=== PATIENT | female | born 1935 | race Caucasian/White ===

== ENCOUNTER 2017-04-11 10:57 | Day surgery (SDC) | payer MEDICARE, SELFPAY ==
[~2017-04-11] VITALS: Ht 162.6 cm; Wt 107.6 kg
[~2017-04-11 10:57] MED LIST: ATEN50 PO; ATOR40TA PO; HYDCHL25 PO; LEVSOD150 PO; Norco 5-325 Ta1 EACH PO; Omeprazole20 M1 PO; Prozac20 MG PO; ULTRA-LIGHT RO1 EACH MC
[2017-04-15] MEDS ORDERED: Toprol Xl50 MG PO (08:43)
[2017-04-15] MEDS ORDERED: XARELTO15 MG PO (08:43)
== END 2017-04-11 12:10 | disposition home or self-care (01) ==
LOC: ORSCSDS 10:57
PROVIDERS: Internal Medicine Gastroenterology
PROC: 0DB68ZX Excision of Stomach, Via Natural or Artificial Opening Endoscopic, Diagnostic (ICD-10-PCS; principal; 2017-04-11 13:30)
DX: R13.10 Dysphagia, unspecified (principal); K44.9 Diaphragmatic hernia without obstruction or gangrene; K29.00 Acute gastritis without bleeding; K20.9 Esophagitis, unspecified; R11.2 Nausea with vomiting, unspecified; Z98.84 Bariatric surgery status; E05.90 Thyrotoxicosis, unspecified without thyrotoxic crisis or storm; E78.5 Hyperlipidemia, unspecified; I10 Essential (primary) hypertension; F41.9 Anxiety disorder, unspecified; Z87.891 Personal history of nicotine dependence; Z79.82 Long term (current) use of aspirin; Z79.899 Other long term (current) drug therapy
CPT/HCPCS: 88305; 88342

== ENCOUNTER 2017-11-19 19:47 | Emergency (ER) | payer MEDICARE ==
[~2017-11-19] VITALS: Ht 162.6 cm; Wt 117.9 kg
[~2017-11-19 19:47] MED LIST changes: +Toprol Xl50 MG PO; +XARELTO15 MG PO
[2017-11-19] MEDS ORDERED: Zofran Odt4 MG PO (22:04)
[2017-11-19] MEDS ORDERED: Norco 5-325 Ta1 EACH PO (22:04)
== END 2017-11-19 22:56 | disposition home or self-care (01) ==
LOC: ER 19:47
DX: S82.62XA Displaced fracture of lateral malleolus of left fibula, initial encounter for closed fracture (principal); E03.9 Hypothyroidism, unspecified; I10 Essential (primary) hypertension; E78.00 Pure hypercholesterolemia, unspecified; Z79.899 Other long term (current) drug therapy; Z87.891 Personal history of nicotine dependence; W19.XXXA Unspecified fall, initial encounter
CPT/HCPCS: 29505; 73610; 96372; 99284-25; J3010

== ENCOUNTER 2017-11-27 07:47 | Day surgery (SDC) | payer MEDICARE ==
[~2017-11-27] VITALS: Ht 167.6 cm; Wt 104.3 kg
[~2017-11-27 07:47] MED LIST changes: +Zofran Odt4 MG PO
[2017-11-27] MEDS ORDERED: ELIQUIS5 MG PO (08:59)
[2017-11-27] MEDS ORDERED: Protonix40 MG PO (09:01)
[2017-11-27] MEDS ORDERED: RANI150EL (09:02)
== END 2017-11-27 14:36 | disposition home or self-care (01) ==
LOC: ORSCSDS 07:47
PROVIDERS: Orthopaedic Surgery
PROC: 0QSK04Z Reposition Left Fibula with Internal Fixation Device, Open Approach (ICD-10-PCS; principal; 2017-11-27 09:30)
DX: S82.62XA Displaced fracture of lateral malleolus of left fibula, initial encounter for closed fracture (principal); I10 Essential (primary) hypertension; I48.91 Unspecified atrial fibrillation; E78.00 Pure hypercholesterolemia, unspecified; K21.9 Gastro-esophageal reflux disease without esophagitis; E03.9 Hypothyroidism, unspecified; E66.01 Morbid (severe) obesity due to excess calories; Z68.37 Body mass index [BMI] 37.0-37.9, adult; Z79.899 Other long term (current) drug therapy
CPT/HCPCS: C1713; J0690; J2250; J3010; J7120

== ENCOUNTER 2018-05-04 16:45 | Emergency (ER) | payer MEDICARE, OTHER ==
[~2018-05-04] VITALS: Ht 165.1 cm; Wt 108.9 kg
[~2018-05-04 16:45] MED LIST changes: +ELIQUIS5 MG PO; +Protonix40 MG PO; +RANI150EL
[2018-05-04] MEDS ORDERED: Augmentin 875-1 EACH PO (17:36)
== END 2018-05-04 17:52 | disposition home or self-care (01) ==
LOC: ER 16:45
DX: S61.451A Open bite of right hand, initial encounter (principal); W55.01XA Bitten by cat, initial encounter; Z79.899 Other long term (current) drug therapy; E03.9 Hypothyroidism, unspecified; E78.00 Pure hypercholesterolemia, unspecified; I10 Essential (primary) hypertension; Z87.891 Personal history of nicotine dependence
CPT/HCPCS: 90471; 90714; 99283

== ENCOUNTER → 2018-10-18 | Outpatient (CLI) | payer MEDICARE, SELFPAY ==
[~2018-10-18] MED LIST changes: +Augmentin 875-1 EACH PO
== END | disposition home or self-care (01) ==
LOC: PLD 08:55 → LAB SHORT 08:55
DX: D22.22 Melanocytic nevi of left ear and external auricular canal (principal)
CPT/HCPCS: 88305

== ENCOUNTER 2018-11-14 12:14 | Emergency (ER) | payer MEDICARE, SELFPAY ==
[~2018-11-14] VITALS: Ht 165.1 cm; Wt 108.0 kg
[2018-11-14 12:59] LABS: BASOPHILS ABSOLUTE AUTO 0.08 K/mm3 (0.00-0.23); BASOPHILS PERCENT AUTO 1 % (0-2); EOSINOPHILS ABSOLUTE AUTO 0.19 K/mm3 (0.00-0.68); EOSINOPHILS PERCENT AUTO 3 % (0-6); Hematocrit 46.6 % (33.0-51.0); Hemoglobin 15.3 g/dL (11.5-16.0); IMMATURE GRAN ABSOLUTE AUTO 0.01 K/mm3 (0.00-0.10); IMMATURE GRAN PERCENT AUTO 0 % (0-1); LYMPHOCYTES ABSOLUTE AUTO 2.36 K/mm3 (0.84-5.20); LYMPHOCYTES PERCENT AUTO 35 % (21-46); MONOCYTES ABSOLUTE AUTO 0.76 K/mm3 (0.16-1.47); MONOCYTES PERCENT AUTO 11 % (4-13); Mean Corpuscular HGB 31.7 pg (26.0-34.0); Mean Corpuscular HGB Conc 32.8 g/dL (31.5-36.5); Mean Corpuscular Volume 97 fL (80-100); Mean Platelet Volume 11.3 fL (9.1-12.4); NEUTROPHILS PERCENT AUTO 50 % (41-73); Platelet Count 209 K/mm3 (150-400); RDW Coefficient Variation 12.6 % (11.7-14.2); RDW Standard Deviation 45.1 fL (35.1-46.3); Red Blood Cell Count 4.83 M/mm3 (3.80-5.20)
[2018-11-14 13:21] LABS: Alanine Aminotransfer (ALT/SGP 28 U/L (12-78); Albumin, Blood 3.9 g/dL (3.4-5.0); Alk Phos 73 U/L (50-136); Anion Gap 8 mmol/L (6-16); Aspartate Aminotrans (AST/SGOT 32 U/L (12-37); Bilirubin, Total 0.5 mg/dL (0.1-1.0); Blood Urea Nitrogen 22 mg/dL (8-24); Bun/Creatinine Ratio 26.3 (12.0-20.0); CO2, Blood 29 mmol/L (21-32); Calcium, Blood 9.4 mg/dL (8.5-10.1); Chloride, Blood 103 mmol/L (98-108); Creatinine, Blood 0.84 mg/dL (0.40-1.00); Globulin, Blood 3.8 g/dL (2.2-4.0); Glomerular Filtration Rate >60 (60-); Glucose, Blood 103 mg/dL (70-99); Potassium, Blood 3.9 mmol/L (3.5-5.5); Sodium, Blood 140 mmol/L (136-145); Total Protein, Blood 7.7 g/dL (6.4-8.2); Troponin I <0.015 ng/mL (0.000-0.040)
[2018-11-14 14:21] LABS: Magnesium, Blood 2.2 mg/dL (1.6-2.4)
[2018-11-14 14:23] LABS: Thyroid Stimulating Hormone 0.924 uIU/mL (0.360-4.800)
== END 2018-11-14 15:14 | disposition home or self-care (01) ==
LOC: ER 12:14
PROVIDERS: Emergency Medicine; Physician Assistant
DX: I48.91 Unspecified atrial fibrillation (principal); E78.00 Pure hypercholesterolemia, unspecified; I10 Essential (primary) hypertension; E07.9 Disorder of thyroid, unspecified; I47.1 Supraventricular tachycardia; Z87.891 Personal history of nicotine dependence
CPT/HCPCS: 36415; 71046; 80053; 83735; 84443; 84484; 85025; 93005; 93010; 99285-25; J7030

== ENCOUNTER 2019-04-14 09:34 | Emergency (ER) | payer MEDICARE, SELFPAY ==
[~2019-04-14] VITALS: Ht 170.2 cm; Wt 90.7 kg
[2019-04-14] MEDS ORDERED: ONDA4ODT MM (10:39)
[2019-04-14] MEDS ORDERED: Keflex500 MG PO (10:39)
[2019-04-14] MEDS ORDERED: Norco 10-325 T1 EACH PO (10:39)
== END 2019-04-14 11:12 | disposition home or self-care (01) ==
LOC: ER 09:34
DX: S68.125A Partial traumatic metacarpophalangeal amputation of left ring finger, initial encounter (principal); I10 Essential (primary) hypertension; E03.9 Hypothyroidism, unspecified; Z79.899 Other long term (current) drug therapy; Z79.01 Long term (current) use of anticoagulants; Z87.891 Personal history of nicotine dependence; W23.0XXA Caught, crushed, jammed, or pinched between moving objects, initial encounter
CPT/HCPCS: 12001; 73140; 99283-25

== ENCOUNTER 2020-03-29 17:16 | Emergency (ER) | payer MEDICARE ==
[~2020-03-29] VITALS: Ht 167.6 cm; Wt 117.9 kg
[~2020-03-29 17:16] MED LIST changes: +Keflex500 MG PO; +Norco 10-325 T1 EACH PO; +ONDA4ODT MM
[2020-03-29 17:44] LABS: BASOPHILS ABSOLUTE AUTO 0.07 K/mm3 (0.00-0.23); BASOPHILS PERCENT AUTO 1 % (0-2); EOSINOPHILS ABSOLUTE AUTO 0.19 K/mm3 (0.00-0.68); EOSINOPHILS PERCENT AUTO 3 % (0-6); Hematocrit 44.8 % (33.0-51.0); Hemoglobin 14.6 g/dL (11.5-16.0); IMMATURE GRAN ABSOLUTE AUTO 0.01 K/mm3 (0.00-0.10); IMMATURE GRAN PERCENT AUTO 0 % (0-1); LYMPHOCYTES PERCENT AUTO 36 % (21-46); MONOCYTES ABSOLUTE AUTO 0.58 K/mm3 (0.16-1.47); MONOCYTES PERCENT AUTO 9 % (4-13); Mean Corpuscular HGB 31.1 pg (26.0-34.0); Mean Corpuscular HGB Conc 32.6 g/dL (31.5-36.5); Mean Corpuscular Volume 96 fL (80-100); Mean Platelet Volume 10.9 fL (9.1-12.4); NEUTROPHILS ABSOLUTE AUTO 3.12 K/mm3 (1.96-9.15); NEUTROPHILS PERCENT AUTO 51 % (41-73); Platelet Count 225 K/mm3 (150-400); RDW Coefficient Variation 13.4 % (11.7-14.2); RDW Standard Deviation 47.4 fL (35.1-46.3); Red Blood Cell Count 4.69 M/mm3 (3.80-5.20); White Blood Cell Count 6.17 K/mm3 (4.00-11.30)
[2020-03-29 18:14] LABS: Alanine Aminotransfer (ALT/SGP 30 U/L (12-78); Albumin, Blood 3.8 g/dL (3.4-5.0); Alk Phos 64 U/L (50-136); Anion Gap 7 mmol/L (6-16); Aspartate Aminotrans (AST/SGOT 29 U/L (12-37); Bilirubin, Total 0.4 mg/dL (0.1-1.0); Blood Urea Nitrogen 21 mg/dL (8-24); Bun/Creatinine Ratio 23.6 (12.0-20.0); CO2, Blood 30 mmol/L (21-32); Calcium, Blood 10.1 mg/dL (8.5-10.1); Chloride, Blood 102 mmol/L (98-108); Creatinine, Blood 0.89 mg/dL (0.40-1.00); Globulin, Blood 3.9 g/dL (2.2-4.0); Glomerular Filtration Rate >60 (60-); Glucose, Blood 102 mg/dL (70-99); Potassium, Blood 3.9 mmol/L (3.5-5.5); Sodium, Blood 139 mmol/L (136-145); Total Protein, Blood 7.7 g/dL (6.4-8.2); Troponin I <0.015 ng/mL (0.000-0.040)
[2020-03-29] MEDS ORDERED: Pravachol40 MG PO (19:17)
[2020-03-29] MEDS ORDERED: METO50ER PO (19:17)
[2020-03-29] MEDS ORDERED: OMEP20ER PO (19:18)
[2020-03-29] MEDS ORDERED: CENTRUM SILVER1 EAC2 PO (19:19)
[2020-03-29] MEDS ORDERED: CALCIUM 600 +1 EA11 PO (19:19)
[2020-03-29] MEDS ORDERED: Flax Oil1000 MG PO (19:19)
[2020-03-29] MEDS ORDERED: OMEPRAZOLE MAGN20 MG PO (21:30)
[2020-03-29] MEDS ORDERED: Nitrostat0.4 MG SL (21:30)
== END 2020-03-29 21:39 | disposition home or self-care (01) ==
LOC: ER 17:16
PROVIDERS: Physician Assistant
DX: R07.9 Chest pain, unspecified (principal); I48.91 Unspecified atrial fibrillation; K21.9 Gastro-esophageal reflux disease without esophagitis; E78.00 Pure hypercholesterolemia, unspecified; I10 Essential (primary) hypertension; Z87.891 Personal history of nicotine dependence; Z79.899 Other long term (current) drug therapy; Z79.01 Long term (current) use of anticoagulants; Z88.2 Allergy status to sulfonamides
CPT/HCPCS: 71046; 80053; 83880; 84484; 85025; 93005; 93010; 99285-25

== ENCOUNTER 2021-07-28 12:49 | Inpatient (IN) | payer MEDICARE ==
[~2021-07-28] VITALS: Ht 165.1 cm; Wt 110.5 kg
[~2021-07-28 12:49] MED LIST changes: +CALCIUM 600 +1 EA11 PO; +CENTRUM SILVER1 EAC2 PO; +Flax Oil1000 MG PO; +METO50ER PO; +Nitrostat0.4 MG SL; +OMEP20ER PO; +OMEPRAZOLE MAGN20 MG PO; +Pravachol40 MG PO
[2021-07-28 13:34] LABS: BASOPHILS ABSOLUTE AUTO 0.07 K/mm3 (0.00-0.23); BASOPHILS PERCENT AUTO 1 % (0-2); EOSINOPHILS ABSOLUTE AUTO 0.17 K/mm3 (0.00-0.68); EOSINOPHILS PERCENT AUTO 2 % (0-6); Hematocrit 41.3 % (33.0-51.0); Hemoglobin 14.1 g/dL (11.5-16.0); IMMATURE GRAN ABSOLUTE AUTO 0.02 K/mm3 (0.00-0.10); IMMATURE GRAN PERCENT AUTO 0 % (0-1); LYMPHOCYTES ABSOLUTE AUTO 2.03 K/mm3 (0.84-5.20); LYMPHOCYTES PERCENT AUTO 26 % (21-46); MONOCYTES ABSOLUTE AUTO 0.66 K/mm3 (0.16-1.47); MONOCYTES PERCENT AUTO 8 % (4-13); Mean Corpuscular HGB 32.1 pg (26.0-34.0); Mean Corpuscular HGB Conc 34.1 g/dL (31.5-36.5); Mean Corpuscular Volume 94 fL (80-100); Mean Platelet Volume 11.5 fL (9.1-12.4); NEUTROPHILS ABSOLUTE AUTO 4.88 K/mm3 (1.96-9.15); NEUTROPHILS PERCENT AUTO 62 % (41-73); Platelet Count 230 K/mm3 (150-400); RDW Coefficient Variation 12.9 % (11.7-14.2); RDW Standard Deviation 44.5 fL (35.1-46.3); Red Blood Cell Count 4.39 M/mm3 (3.80-5.20); White Blood Cell Count 7.83 K/mm3 (4.00-11.30)
[2021-07-28 14:03] LABS: Albumin/Globulin Ratio 1.1 (0.8-1.8); Bilirubin, Total 0.4 mg/dL (0.1-1.0); Bun/Creatinine Ratio 28.3 (12.0-20.0); Calcium, Blood 14.6 mg/dL (8.5-10.1); Creatinine, Blood 1.38 mg/dL (0.40-1.00); Globulin, Blood 3.8 g/dL (2.2-4.0); Potassium, Blood 2.8 mmol/L (3.5-5.5); Total Protein, Blood 7.8 g/dL (6.4-8.2)
[2021-07-28 14:43] LABS: Free Thyroxine 1.44 ng/dL (0.70-1.60); Magnesium, Blood 1.4 mg/dL (1.6-2.4); Phosphorus, Blood 2.6 mg/dL (2.5-4.9); Thyroid Stimulating Hormone 1.87 uIU/mL (0.360-4.800)
[2021-07-28 14:45] LABS: Source, Urine Clean Catch
[2021-07-28 14:49] LABS: Bilirubin, Urine Neg (Neg); Blood, Urine 1+ (Neg); Glucose Qualitative, Urine Neg (Neg); Ketones, Urine Neg (Neg); Leukocyte Esterase, Urine 2+ (Neg); Nitrite, Urine Neg (Neg); Protein, Urine Neg (Neg); Urobilinogen, Urine NORM (Normal)
[2021-07-28 15:00] LABS: Appearance, Urine Hazy (Clear); Color, Urine Pale Yellow (P-Yellow)
[2021-07-28 15:02] LABS: Squamous Epithelial Cells Few /hpf (Few)
[2021-07-28 15:03] LABS: Amorphous Light (0-Heavy); Bacteria Few /hpf; Mucus Light (0-Heavy)
[2021-07-28 16:27] LABS: Base Excess Venous 15.2 mmol/L; Bicarbonate Venous 36.6 mmol/L (24.0-30.0); PCO2 Venous 53.8 mmHg (38-42); pH Blood Venous 7.47 (7.34-7.37)
[2021-07-28 16:49] LABS: Uric Acid, Blood 8.2 mg/dL (2.6-6.0)
[2021-07-28] MEDS ORDERED: LOSA25 PO (17:45)
[2021-07-28] MEDS ORDERED: [UNRECOGNIZED DRUG - CODE] SL (17:51)
[2021-07-28] MEDS ORDERED: KRILL OIL 5001 EAC1 PO (17:51)
--- NOTE | 2021-07-28 18:26 | NUR ---
SHIFT SUMMARY: ASSUMED CARE OF PATIENT UPON HER ARRIVAL FROM ED AT 1625. STAND-PIVOT TRANSFER FROM [facility] TO BED, WEAKNESS IN BLE. A&O X 4, PLEASANT. PLACED ON TELEMETRY, SINUS JUN AT 56. ON ROOM AIR, NO COUGH. GETTING UP TO BR WITH SBA AND FWW. DENIES PAIN. MAGNESIUM REPLACED, KCL INFUSING NOW. HAS CHRONIC CONSTIPATION, USES MAG CITRATE AT HOME, LBM "DAYS AGO." SPOUSE AT BEDSIDE. EDUCATED ABOUT FALL PRECAUTIONS, TELEMETRY, UNIT ROUTINE. CALL LIGHT AND BELONGINGS IN REACH.
[2021-07-29 05:16] LABS: BASOPHILS ABSOLUTE AUTO 0.07 K/mm3 (0.00-0.23); BASOPHILS PERCENT AUTO 1 % (0-2); EOSINOPHILS ABSOLUTE AUTO 0.17 K/mm3 (0.00-0.68); EOSINOPHILS PERCENT AUTO 2 % (0-6); Hematocrit 35.4 % (33.0-51.0); Hemoglobin 12.1 g/dL (11.5-16.0); IMMATURE GRAN ABSOLUTE AUTO 0.03 K/mm3 (0.00-0.10); IMMATURE GRAN PERCENT AUTO 0 % (0-1); LYMPHOCYTES ABSOLUTE AUTO 1.74 K/mm3 (0.84-5.20); LYMPHOCYTES PERCENT AUTO 17 % (21-46); MONOCYTES ABSOLUTE AUTO 1.11 K/mm3 (0.16-1.47); MONOCYTES PERCENT AUTO 11 % (4-13); Mean Corpuscular HGB 32.2 pg (26.0-34.0); Mean Corpuscular HGB Conc 34.2 g/dL (31.5-36.5); Mean Corpuscular Volume 94 fL (80-100); Mean Platelet Volume 11.6 fL (9.1-12.4); NEUTROPHILS ABSOLUTE AUTO 6.91 K/mm3 (1.96-9.15); NEUTROPHILS PERCENT AUTO 69 % (41-73); Platelet Count 206 K/mm3 (150-400); RDW Standard Deviation 44.5 fL (35.1-46.3); Red Blood Cell Count 3.76 M/mm3 (3.80-5.20); White Blood Cell Count 10.03 K/mm3 (4.00-11.30)
[2021-07-29 05:36] LABS: Magnesium, Blood 1.6 mg/dL (1.6-2.4)
[2021-07-29 05:41] LABS: Albumin, Blood 3.5 g/dL (3.4-5.0); Bilirubin, Total 0.5 mg/dL (0.1-1.0); Bun/Creatinine Ratio 22.8 (12.0-20.0); Creatinine, Blood 1.27 mg/dL (0.40-1.00); Globulin, Blood 3.4 g/dL (2.2-4.0); Potassium, Blood 2.7 mmol/L (3.5-5.5); Total Protein, Blood 6.9 g/dL (6.4-8.2)
[2021-07-29 05:44] LABS: Calcium, Blood 12.3 mg/dL (8.5-10.1)
--- NOTE | 2021-07-29 06:11 | NUR ---
PT IS A/OX4. A LITTLE FORGETFUL AT TIMES. SHE IS A SBA W/ FWW TO BR. SHE'S HAD C/O OF CONSTIPATION, BUT HAS MULTIPLE BMs THIS NOC SHIFT. PER TOOL MAKER: SR/71, 1ST DEGREE, BBB HB. PT USES CALL LIGHT WELL AND WE'LL CONTINUE TO MONITOR.
--- NOTE | 2021-07-29 17:05 | NUR ---
SHIFT SUMMARY: HAVING FREQUENT BM'S, LIQUID STOOL. C/O HEADACHE EARLIER, MEDICATED WITH TYLENOL WITH GOOD RELIEF. POOR APPETITE AFTER VOMITING BREAKFAST. ORTHOPEDICALLY IMPAIRED TEACHER CONSULT ORDERED TO HELP HER MAKE BETTER FOOD CHOICES AT HOME. NO EVENTS ON TELEMETRY, SINUS JUN-SR 50-68. GETTING UP TO BR WITH SBA AND FWW. IS HOPING TO BE DISCHARGED HOME TOMORROW.
[2021-07-30 05:12] LABS: Hematocrit 31.8 % (33.0-51.0); Hemoglobin 10.7 g/dL (11.5-16.0); Mean Corpuscular HGB 32.3 pg (26.0-34.0); Mean Corpuscular HGB Conc 33.6 g/dL (31.5-36.5); Mean Corpuscular Volume 96 fL (80-100); Mean Platelet Volume 11.6 fL (9.1-12.4); Platelet Count 175 K/mm3 (150-400); RDW Coefficient Variation 13.4 % (11.7-14.2); RDW Standard Deviation 47.1 fL (35.1-46.3); Red Blood Cell Count 3.31 M/mm3 (3.80-5.20); White Blood Cell Count 7.62 K/mm3 (4.00-11.30)
[2021-07-30 05:33] LABS: Albumin, Blood 3.2 g/dL (3.4-5.0); Anion Gap 1 mmol/L (6-16); Blood Urea Nitrogen 17 mg/dL (8-24); Bun/Creatinine Ratio 14.8 (12.0-20.0); CO2, Blood 30 mmol/L (21-32); Chloride, Blood 108 mmol/L (98-108); Creatinine, Blood 1.15 mg/dL (0.40-1.00); Glomerular Filtration Rate 45 (60-); Glucose, Blood 115 mg/dL (70-99); Phosphorus, Blood 1.4 mg/dL (2.5-4.9); Potassium, Blood 2.8 mmol/L (3.5-5.5); Sodium, Blood 139 mmol/L (136-145)
[2021-07-30 05:50] LABS: Calcium, Blood 9.5 mg/dL (8.5-10.1)
--- NOTE | 2021-07-30 06:13 | NUR ---
SHIFT SUMMARY: PT IS A/OX4, BUT HAS SOME INTERMITTENT FORGETFULLNESS. TELE: PER TECH SHE WENT INTO AFIB @ 1999 & CONVERTED TO NORMAL SINUS AROUND 0040. THE PT IS MORE STEADY AND A SBA W/ FWW TO BR. BED ALARM HAS BEEN SET D/T PT NOT ALWAYS USING CALL LIGHT WHEN GETTING OOB. PT DID HAVE ONE EPISODE OF EMESIS (50 ML) @ 0345. DIETIAN ORDER WAS PUT IN 07/29. CALL LIGHT IS WITHIN REACH AND BED ALARM IS SET.
[2021-07-30] MEDS ORDERED: OMEP20ER PO (10:38)
[2021-07-30] MEDS ORDERED: POTCHL20ER PO (10:39)
--- NOTE | 2021-07-30 12:02 | NUR ---
DISCHARGE NOTE THE PATIENT WAS DISCHARGED THIS AM VIA WHEELCHAIR WITH SPOUSE. THE PATIENT VERBALIZED UNDERSTANDING OF DISCHARGE INSTRUCTIONS GIVEN. VSS AT DISCHARGE. NOTHING FURTHER TO REPORT.
== END 2021-07-30 11:34 | disposition home or self-care (01) | DRG 683 ==
LOC: ER 12:49 → MEDS 12:50 → ENPENDDIS 07-30 10:24 → MEDS 07-30 11:34
PROVIDERS: Emergency Medicine; Internal Medicine; Nurse Practitioner Acute Care; Student in an Organized Health Care Education/Training Program; ADMIT Family Medicine
DX: N17.9 Acute kidney failure, unspecified (principal); E87.3 Alkalosis; I48.20 Chronic atrial fibrillation, unspecified; E83.52 Hypercalcemia; E87.6 Hypokalemia; E83.42 Hypomagnesemia; E78.5 Hyperlipidemia, unspecified; K21.9 Gastro-esophageal reflux disease without esophagitis; K59.09 Other constipation; I10 Essential (primary) hypertension; E03.9 Hypothyroidism, unspecified; Z96.653 Presence of artificial knee joint, bilateral; Z88.2 Allergy status to sulfonamides; Z79.899 Other long term (current) drug therapy; Z79.01 Long term (current) use of anticoagulants; Z90.49 Acquired absence of other specified parts of digestive tract; Z90.710 Acquired absence of both cervix and uterus; Z90.89 Acquired absence of other organs; Z98.890 Other specified postprocedural states
CPT/HCPCS: 36415; 71045; 71260; 80053; 80069; 81001; 82306; 82310; 82330; 82550; 82652; 82803; 83735; 83880; 83970; 84100; 84132; 84439; 84443; 84550; 85025; 85027; 87086; 93005; 93010; 96365; 96368; 96375; 96376; 99285-25; A9270; G0378; J0630; J1940; J2405; J3475; J3480; J3489; J7030; Q9967

== ENCOUNTER → 2022-05-05 | Outpatient (CLI) | payer MEDICARE ==
[~2022-05-05] MED LIST changes: +KRILL OIL 5001 EAC1 PO; +LOSA25 PO; +POTCHL20ER PO; +[UNRECOGNIZED DRUG - CODE] SL
== END | disposition home or self-care (01) ==
LOC: LAB 15:20 → LAB SHORT 15:20
DX: Z48.817 Encounter for surgical aftercare following surgery on the skin and subcutaneous tissue (principal)
CPT/HCPCS: 87070; 87205

== ENCOUNTER 2022-12-17 18:50 | Emergency (ER) | payer OTHER ==
[~2022-12-17] VITALS: Ht 165.1 cm; Wt 111.1 kg
[2022-12-17 18:57] VITALS: BP 174/75
== END 2022-12-17 20:17 | disposition home or self-care (01) ==
LOC: ER 18:50
DX: H61.22 Impacted cerumen, left ear (principal); I10 Essential (primary) hypertension; I48.91 Unspecified atrial fibrillation; Z88.2 Allergy status to sulfonamides; Z79.899 Other long term (current) drug therapy; Z79.01 Long term (current) use of anticoagulants; Z87.891 Personal history of nicotine dependence
CPT/HCPCS: 99282

== ENCOUNTER 2023-03-06 13:14 | Emergency (ER) | payer OTHER ==
[~2023-03-06] VITALS: Ht 165.1 cm; Wt 108.9 kg
[2023-03-06 14:08] LABS: BASOPHILS ABSOLUTE AUTO 0.09 K/mm3 (0.00-0.23); BASOPHILS PERCENT AUTO 1 % (0-2); EOSINOPHILS ABSOLUTE AUTO 0.25 K/mm3 (0.00-0.68); EOSINOPHILS PERCENT AUTO 3 % (0-6); Hemoglobin 14.6 g/dL (11.5-16.0); IMMATURE GRAN ABSOLUTE AUTO 0.02 K/mm3 (0.00-0.10); IMMATURE GRAN PERCENT AUTO 0 % (0-1); LYMPHOCYTES ABSOLUTE AUTO 2.44 K/mm3 (0.84-5.20); LYMPHOCYTES PERCENT AUTO 31 % (21-46); MONOCYTES ABSOLUTE AUTO 0.81 K/mm3 (0.16-1.47); MONOCYTES PERCENT AUTO 10 % (4-13); Mean Corpuscular HGB 31.9 pg (26.0-34.0); Mean Corpuscular HGB Conc 33.2 g/dL (31.5-36.5); Mean Corpuscular Volume 96 fL (80-100); Mean Platelet Volume 10.5 fL (9.1-12.4); NEUTROPHILS ABSOLUTE AUTO 4.38 K/mm3 (1.96-9.15); NEUTROPHILS PERCENT AUTO 55 % (41-73); Platelet Count 228 K/mm3 (150-400); RDW Coefficient Variation 13.1 % (11.7-14.2); RDW Standard Deviation 46.5 fL (35.1-46.3); Red Blood Cell Count 4.57 M/mm3 (3.80-5.20); White Blood Cell Count 7.99 K/mm3 (4.00-11.30)
[2023-03-06 14:25] LABS: Albumin, Blood 3.7 g/dL (3.4-5.0); Albumin/Globulin Ratio 0.9 (0.8-1.8); Bilirubin, Total 0.4 mg/dL (0.1-1.0); Bun/Creatinine Ratio 18.9 (12.0-20.0); Creatinine, Blood 1.22 mg/dL (0.40-1.00); Globulin, Blood 3.9 g/dL (2.2-4.0); Potassium, Blood 4.8 mmol/L (3.5-5.5); Total Protein, Blood 7.6 g/dL (6.4-8.2)
[2023-03-06 16:25] LABS: Magnesium, Blood 2.3 mg/dL (1.6-2.4); Phosphorus, Blood 3.5 mg/dL (2.5-4.9)
[2023-03-06 16:47] VITALS: BP 131/81
== END 2023-03-06 16:49 | disposition home or self-care (01) ==
LOC: ER 13:14
PROVIDERS: Physician Assistant
DX: N17.9 Acute kidney failure, unspecified (principal); E86.0 Dehydration; I44.0 Atrioventricular block, first degree; I10 Essential (primary) hypertension; I48.91 Unspecified atrial fibrillation; Z79.899 Other long term (current) drug therapy; Z79.01 Long term (current) use of anticoagulants; Z88.2 Allergy status to sulfonamides
CPT/HCPCS: 80053; 83735; 84100; 85025; 93005; 93010; 96360; 99285-25; J7030

== ENCOUNTER → 2023-06-08 | Outpatient (CLI) | payer OTHER | LOC: LAB 11:45 → LAB SHORT 11:45 | DX: R30.0 Dysuria (principal) | CPT/HCPCS: 87077; 87086; 87186 ==

== ENCOUNTER 2023-06-14 10:46 | Emergency (ER) | payer OTHER ==
[~2023-06-14] VITALS: Ht 165.1 cm; Wt 108.9 kg
[2023-06-14 11:14] LABS: BASOPHILS ABSOLUTE AUTO 0.09 K/mm3 (0.00-0.23); BASOPHILS PERCENT AUTO 1 % (0-2); EOSINOPHILS ABSOLUTE AUTO 0.19 K/mm3 (0.00-0.68); EOSINOPHILS PERCENT AUTO 3 % (0-6); Hematocrit 45.6 % (33.0-51.0); Hemoglobin 15.3 g/dL (11.5-16.0); IMMATURE GRAN ABSOLUTE AUTO 0.02 K/mm3 (0.00-0.10); IMMATURE GRAN PERCENT AUTO 0 % (0-1); LYMPHOCYTES ABSOLUTE AUTO 1.77 K/mm3 (0.84-5.20); LYMPHOCYTES PERCENT AUTO 24 % (21-46); MONOCYTES ABSOLUTE AUTO 0.62 K/mm3 (0.16-1.47); MONOCYTES PERCENT AUTO 8 % (4-13); Mean Corpuscular HGB 31.6 pg (26.0-34.0); Mean Corpuscular HGB Conc 33.6 g/dL (31.5-36.5); Mean Corpuscular Volume 94 fL (80-100); Mean Platelet Volume 10.6 fL (9.1-12.4); NEUTROPHILS ABSOLUTE AUTO 4.72 K/mm3 (1.96-9.15); NEUTROPHILS PERCENT AUTO 64 % (41-73); Platelet Count 259 K/mm3 (150-400); RDW Coefficient Variation 12.7 % (11.7-14.2); RDW Standard Deviation 44.2 fL (35.1-46.3); Red Blood Cell Count 4.84 M/mm3 (3.80-5.20); White Blood Cell Count 7.41 K/mm3 (4.00-11.30)
[2023-06-14 11:43] LABS: Albumin, Blood 3.5 g/dL (3.4-5.0); Albumin/Globulin Ratio 0.9 (0.8-1.8); Bilirubin, Total 0.6 mg/dL (0.1-1.0); Bun/Creatinine Ratio 26.9 (12.0-20.0); Calcium, Blood 9.8 mg/dL (8.5-10.1); Creatinine, Blood 0.89 mg/dL (0.40-1.00); Globulin, Blood 3.8 g/dL (2.2-4.0); Potassium, Blood 4.4 mmol/L (3.5-5.5); Total Protein, Blood 7.3 g/dL (6.4-8.2)
[2023-06-14 14:16] LABS: Source, Urine Clean Catch
[2023-06-14 14:39] LABS: Appearance, Urine Clear (Clear); Bilirubin, Urine Neg (Neg); Blood, Urine 1+ (Neg); Color, Urine Yellow (P-Yellow); Glucose Qualitative, Urine Neg (Neg); Ketones, Urine 1+ (Neg); Leukocyte Esterase, Urine 1+ (Neg); Nitrite, Urine Neg (Neg); Protein, Urine 1+ (Neg); Urobilinogen, Urine NORM (Normal)
[2023-06-14] MEDS ORDERED: Diltiazem HCl 5 MG / ML 5ML Vial IV ONE (14:40)
[2023-06-14 15:05] VITALS: BP 112/67
[2023-06-14 15:06] LABS: Bacteria Few /hpf; Mucus Light (0-Heavy); Renal Epithelial Rare /hpf (0-Rare); Squamous Epithelial Cells Few /hpf (Few)
[2023-06-15] MEDS ORDERED: Amiodarone HCl200 MG PO (16:46)
== END 2023-06-14 15:30 | disposition home or self-care (01) ==
LOC: ER 10:46
PROVIDERS: Student in an Organized Health Care Education/Training Program
DX: I48.91 Unspecified atrial fibrillation (principal); I10 Essential (primary) hypertension; E78.00 Pure hypercholesterolemia, unspecified; Z88.2 Allergy status to sulfonamides; Z79.899 Other long term (current) drug therapy; Z79.01 Long term (current) use of anticoagulants
CPT/HCPCS: 71046; 80053; 81001; 85025; 87086; 93005; 93010; 96374; 99285-25

== ENCOUNTER 2023-06-15 11:47 | Emergency (ER) | payer OTHER ==
[~2023-06-15] VITALS: Ht 165.1 cm; Wt 108.9 kg
[2023-06-15 13:02] LABS: BASOPHILS ABSOLUTE AUTO 0.08 K/mm3 (0.00-0.23); BASOPHILS PERCENT AUTO 1 % (0-2); EOSINOPHILS ABSOLUTE AUTO 0.23 K/mm3 (0.00-0.68); EOSINOPHILS PERCENT AUTO 3 % (0-6); Hematocrit 43.6 % (33.0-51.0); Hemoglobin 14.8 g/dL (11.5-16.0); IMMATURE GRAN ABSOLUTE AUTO 0.02 K/mm3 (0.00-0.10); IMMATURE GRAN PERCENT AUTO 0 % (0-1); LYMPHOCYTES ABSOLUTE AUTO 2.04 K/mm3 (0.84-5.20); LYMPHOCYTES PERCENT AUTO 26 % (21-46); MONOCYTES ABSOLUTE AUTO 0.63 K/mm3 (0.16-1.47); MONOCYTES PERCENT AUTO 8 % (4-13); Mean Corpuscular HGB 32.1 pg (26.0-34.0); Mean Corpuscular HGB Conc 33.9 g/dL (31.5-36.5); Mean Corpuscular Volume 95 fL (80-100); Mean Platelet Volume 10.5 fL (9.1-12.4); NEUTROPHILS ABSOLUTE AUTO 4.83 K/mm3 (1.96-9.15); NEUTROPHILS PERCENT AUTO 62 % (41-73); Platelet Count 244 K/mm3 (150-400); RDW Coefficient Variation 12.8 % (11.7-14.2); Red Blood Cell Count 4.61 M/mm3 (3.80-5.20); White Blood Cell Count 7.83 K/mm3 (4.00-11.30)
[2023-06-15 13:31] LABS: Albumin, Blood 3.4 g/dL (3.4-5.0); Albumin/Globulin Ratio 0.9 (0.8-1.8); Bilirubin, Total 0.4 mg/dL (0.1-1.0); Bun/Creatinine Ratio 30.8 (12.0-20.0); Calcium, Blood 9.6 mg/dL (8.5-10.1); Creatinine, Blood 1.04 mg/dL (0.40-1.00); Globulin, Blood 3.7 g/dL (2.2-4.0); Potassium, Blood 4.6 mmol/L (3.5-5.5); Total Protein, Blood 7.1 g/dL (6.4-8.2)
[2023-06-15] MEDS ORDERED: Propofol 10mg/ml 20 ml Vial (Procedural) IV SCH (14:10)
[2023-06-15] MEDS ORDERED: NS 1,000 ML IV SCH (14:20)
[2023-06-15] MEDS ORDERED: Metoprolol Tartrate 1 MG/ML 5 ML VIAL IV ONE (15:10)
[2023-06-15] MEDS ORDERED: Amiodarone HCl200 MG PO (16:46)
[2023-06-15 16:52] VITALS: BP 136/74
== END 2023-06-15 17:04 | disposition home or self-care (01) ==
LOC: ER 11:47
PROVIDERS: Physician Assistant
DX: I48.91 Unspecified atrial fibrillation (principal); I10 Essential (primary) hypertension; E03.9 Hypothyroidism, unspecified; E78.00 Pure hypercholesterolemia, unspecified; E07.9 Disorder of thyroid, unspecified; Z79.899 Other long term (current) drug therapy; Z88.2 Allergy status to sulfonamides
CPT/HCPCS: 80053; 83690; 85025; 92960; 93005; 93010; 96374-59; 99285-25; J2704; J7030

== ENCOUNTER 2024-02-02 21:01 | Emergency (ER) | payer OTHER ==
[~2024-02-02] VITALS: Ht 165.1 cm; Wt 102.5 kg
[~2024-02-02 21:01] MED LIST changes: +Amiodarone HCl200 MG PO; +Etomidate 2MG / ML 10ML Vial IV ONE; +Phenylephrine HCl 100 MCG/ML-NS 10MLSYR (1MG/10ML) IV ONE; +Rocuronium Bromide 10 MG/ML 5ML Injection IV ONE
[2024-02-02] MEDS ORDERED: Ondansetron HCl 2 MG / ML 2ML Vial IV ONE ×3 (21:05→22:30)
[2024-02-02] MEDS ORDERED: Pantoprazole Sodium 40 MG Injection IV ONE ×2 (21:05→21:10)
[2024-02-02] MEDS ORDERED: Pantoprazole Sodium 40 MG in NS 50 ML IV SCH (21:10)
[2024-02-02 21:11] LABS: Calcium, Ionized (POC) 1.19 mmol/L (1.10-1.46); Chloride (POC) 101 mmol/L (98-108); Creatinine (POC) 1.3 mg/dL (0.6-1.0); Glucose (ISTAT POC) 187 mg/dL (70-99); Hemoglobin (POC) 12.9 g/dL (12.0-16.0); Potassium (POC) 3.6 mmol/L (3.5-5.5); Sodium (POC) 139 mmol/L (135-148); Total CO2 (POC) 21 mmol/L (21-32)
[2024-02-02] MEDS ORDERED: NS 1,000 ML IV ONE (21:14)
[2024-02-02] MEDS ORDERED: NS 1,000 ML IV SCH (21:20)
[2024-02-02 21:26] LABS: BASOPHILS ABSOLUTE AUTO 0.08 K/mm3 (0.00-0.23); BASOPHILS PERCENT AUTO 1 % (0-2); EOSINOPHILS ABSOLUTE AUTO 0.24 K/mm3 (0.00-0.68); EOSINOPHILS PERCENT AUTO 3 % (0-6); Hematocrit 38.1 % (33.0-51.0); Hemoglobin 12.4 g/dL (11.5-16.0); IMMATURE GRAN ABSOLUTE AUTO 0.03 K/mm3 (0.00-0.10); IMMATURE GRAN PERCENT AUTO 0 % (0-1); LYMPHOCYTES ABSOLUTE AUTO 3.83 K/mm3 (0.84-5.20); LYMPHOCYTES PERCENT AUTO 39 % (21-46); MONOCYTES PERCENT AUTO 8 % (4-13); Mean Corpuscular HGB 31.6 pg (26.0-34.0); Mean Corpuscular HGB Conc 32.5 g/dL (31.5-36.5); Mean Corpuscular Volume 97 fL (80-100); Mean Platelet Volume 11.1 fL (9.1-12.4); NEUTROPHILS ABSOLUTE AUTO 4.77 K/mm3 (1.96-9.15); NEUTROPHILS PERCENT AUTO 49 % (41-73); Platelet Count 261 K/mm3 (150-400); RDW Coefficient Variation 12.9 % (11.7-14.2); RDW Standard Deviation 45.9 fL (35.1-46.3); Red Blood Cell Count 3.92 M/mm3 (3.80-5.20); White Blood Cell Count 9.75 K/mm3 (4.00-11.30)
[2024-02-02] MEDS ORDERED: Human Prothrombin Complx(Pcc) 2,000 UNIT in Water For Injection,Sterile 80 ML IV ONE (21:30)
[2024-02-02 21:31] LABS: International Normalized Ratio 0.99; Prothrombin Time Results 10.6 Sec (9.7-11.5)
[2024-02-02 21:33] LABS: Albumin, Blood 3.1 g/dL (3.4-5.0); Albumin/Globulin Ratio 0.8 (0.8-1.8); Bilirubin, Total 0.2 mg/dL (0.1-1.0); Bun/Creatinine Ratio 22.6 (12.0-20.0); Calcium, Blood 9.4 mg/dL (8.5-10.1); Creatinine, Blood 1.15 mg/dL (0.40-1.00); Globulin, Blood 3.8 g/dL (2.2-4.0); Potassium, Blood 3.7 mmol/L (3.5-5.5); Total Protein, Blood 6.9 g/dL (6.4-8.2)
[2024-02-02] MEDS ORDERED: HUMAN PROTHROMBIN COMPLX IV ONE (21:35)
[2024-02-02] MEDS ORDERED: WATER FOR INJECTION STERILE IV ONE (21:35)
[2024-02-02] MEDS ORDERED: FentaNYL Citrate 50 MCG/ML 2 ML Injection ONE (22:23)
[2024-02-02] MEDS ORDERED: FentaNYL Citrate 50 MCG/ML 2 ML Injection IV ONE (22:35)
[2024-02-02] MEDS ORDERED: propofoL 100 ML IV ONE (22:41)
[2024-02-02] MEDS ORDERED: propofoL 100 ML IV SCH (22:45)
[2024-02-02] MEDS ORDERED: fentaNYL citrate 1,000 MCG in NS 80 ML IV SCH (22:55)
[2024-02-02] MEDS ORDERED: Nitroglycerin/D5W 250 ML IV ONE (23:17)
[2024-02-02] MEDS ORDERED: Vasopressin 20 UNITS in NS 100 ML IV SCH (23:25)
[2024-02-02] MEDS ORDERED: Nitroglycerin/D5W 250 ML IV SCH (23:25)
[2024-02-03 00:12] VITALS: BP 71/54
[2024-02-03] MEDS ORDERED: Tranexamic Acid 100 ML IV ONE ×3 (00:25→00:30)
[2024-02-03] MEDS ORDERED: EUTHYROX137 MC1 PO (02:53)
[2024-02-03] MEDS ORDERED: PRAV20 PO (02:53)
[2024-02-03] MEDS ORDERED: LOSA50 PO (02:53)
[2024-02-03 03:01] LABS: Source, Urine Foley catheter
[2024-02-03 03:03] LABS: Bilirubin, Urine Neg (Neg); Blood, Urine Neg (Neg); Glucose Qualitative, Urine Neg (Neg); Ketones, Urine Neg (Neg); Leukocyte Esterase, Urine Neg (Neg); Nitrite, Urine Neg (Neg); Protein, Urine 2+ (Neg); Specific Gravity, Urine 1.015 (1.003-1.022); Urobilinogen, Urine NORM (Normal)
[2024-02-03 03:51] LABS: Appearance, Urine Clear (Clear); Color, Urine Yellow (P-Yellow)
[2024-02-03 03:53] LABS: Amorphous Light (0-Heavy); Bacteria Few /hpf; Red Blood Cells, Urine 0-2 /hpf (0-2); Squamous Epithelial Cells Few /hpf (Few); White Blood Cells, Urine 0-2 /hpf (0-5)
== END 2024-02-03 00:45 | disposition short-term general hospital (02) ==
LOC: ER 21:01
PROVIDERS: Student in an Organized Health Care Education/Training Program
DX: K92.0 Hematemesis (principal); R57.8 Other shock; E78.00 Pure hypercholesterolemia, unspecified; I10 Essential (primary) hypertension; I48.91 Unspecified atrial fibrillation; Z79.899 Other long term (current) drug therapy; Z88.2 Allergy status to sulfonamides
CPT/HCPCS: 31500; 36430; 43460; 51702; 71045; 74174; 80047; 80053; 81001; 83605; 83690; 84484; 85014; 85025; 85610; 85730; 86850; 86900; 86901; 86923; 93005; 93010; 94002; 96365; 96366; 96368; 96375; 96376; 99291-25; J2371; J2405; J2470; J2704; J3010; J7030; J7168; P9012; P9016; P9059; Q9967